=== PATIENT | male | born 1955 | race Caucasian/White ===

== ENCOUNTER 2017-05-07 18:47 | Inpatient (IN) ==
--- NOTE | 2017-05-07 19:01 | EKG Report ---
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
[2017-05-07] MEDS ORDERED: ONDANSETRON 4 MG/2 ML VIAL IV STA (19:13)
[2017-05-07] MEDS ORDERED: NITROGLYCERIN 2% OINT 1 INCH/GM PACK TOP STA (19:13)
[2017-05-07] MEDS ORDERED: METOPROLOL TARTRATE 5 MG/5 ML VIAL IV STA (19:13)
--- NOTE | 2017-05-07 19:18 | Emergency Department Note ---
Arrival - Arrival Chief Complaint: Chest Pain ED Nursing Triage Note: c/o chest pain. pt was transfered from [facility]. Mode of Arrival: Stretcher Limitations: No Limitations Source: Patient Time Seen by Provider: 05/07/17 19:12 - History of Present Illness HPI Narrative: This 62-year-old white male presents on transfer from [place] for complaints of chest pain. The patient has a significant cardiac history with both stents and CABG in the past, followed by Dr. Mike. In fact, the patient was scheduled for a stress test per Dr. Mike for follow-up evaluation. The patient describes onset of severe central chest pain associated with radiation down the right arm without sweats, nausea, vomiting, or significant shortness of breath 2 hours ago. He went to [facility] where initial workup that accompanies him are 2 EKGs which were significant only for some ST changes but no evidence of any severe evolving incident. Currently the patient describes central chest pain at a level 3 out of 10. Notable, the patient has had increased problems with burping and heartburn in recent weeks but has also noted significant fatigue over the last several days for no good reason. At [facility] he was given aspirin, morphine, Zofran, Lovenox, and begun on a nitroglycerin infusion. currently he is medically stable. Onset (ago): hour(s) (Patient presents 2 hours post onset of symptoms) Allergies/Adverse Reactions: Allergies Allergy/AdvReac Type Severity Reaction Status Date / Time No Known Allergies Allergy Unverified 05/07/17 18:55 Review of System - Review of System 12 point system: reviewed and no additional remarkable complaints except as stated - Review of System Constitutional: Present: as per HPI Respiratory: Present: as per HPI Cardiovascular: Present: as per HPI Gastrointestinal: Present: as per HPI Medical,Surgical,& Family Hx - Medical History Cardio: History of: [place] (times 2) Endocrine: History of: Diabetes Mellitus (NIDDM) - Surgical History Cardiac Surgeries: Sugical HX of: Cardiac Catheterization (stents), Cardiac Surgery (cabg) - Social History Smoking Status: Never smoker Frequency of Alcohol Use: None Type of Drug Use: None Exam Physical Examination: GENERAL: Well developed, well nourished white male in no acute distress. HEENT: Normocephalic. No trauma. Moist mucous membranes. EOMI. PERRLA. ENT NML NECK: Supple. No adenopathy. CARDIAC: Regular. No murmurs. Heart rate 60 CHEST: Clear to auscultation. No respiratory distress. O2 sat 96% ABDOMEN: Soft. Minimal midepigastric tenderness. Active bowel sounds. EXTREMITIES: No trauma. Normal ROM. No pedal edema. SKIN: No diaphoresis. No rash. NEURO: Alert. Neuro intact no focal deficits. Vital Signs: Vital Signs Temperature 98.2 F 05/07/17 18:50 Pulse Rate 59 L 05/07/17 19:03 Respiratory Rate 17 05/07/17 19:03 Blood Pressure 133/73 05/07/17 19:03 O2 Sat by Pulse Oximetry 100 05/07/17 19:03 Course - Reevaluation(s) Reevaluation #1: Discussed with patient the wisdom of admission for cooling off and further evaluation of his cardiac status - Consultations Consultation #1: Discussed with Dr. Kaye who agreed an admission for further evaluation. Results - Labs CBC & BMP: 05/07/17 19:00 05/07/17 19:00 Labs: I have reviewed the laboratory and noted the normal cardiac's - Impressions EKG: Sinus rhythm at 56 with normal MA interval and QRS duration. Nonspecific ST changes of flattening anterolateral leads. EKG is unchanged from prior 2 EKGs from [facility]. - Diagnostic Findings Procedure: Chest x-ray: image reviewed by me, report reviewed by me (Median sternotomy noted otherwise normal chest.) Disposition Clinical Impression: Angina, Coronary artery disease, Diabetes Case discussed with: patient, patient's family Disposition: Still a Patient Condition: Guarded Time of Disposition: 19:56
[2017-05-07] MEDS ORDERED: METOPROLOL TARTRATE 5 MG/5 ML VIAL IV ONE (19:22)
[2017-05-07] MEDS ORDERED: NITROGLYCERIN 2% OINT 1 INCH/GM PACK TOP ONE (19:22)
[2017-05-07] MEDS ORDERED: ONDANSETRON 4 MG/2 ML VIAL ONE (19:22)
[2017-05-07 19:25] LABS: Basophils % 0.6 % (0.0-0.8); Eosinophils # 0.2 10*3/uL (0.0-0.87); Eosinophils % 2.4 % (0.00-10.9); Hematocrit 38.5 VOL% (42.0-52.0); Immature Granulocytes % 0.8 %; Immature Granulocytes Absolute 0.05 #; Lymphocytes # 1.5 10*3/uL (1.4-4.0); Mean Corpuscular HGB Conc 33.8 GM/DL (32-36); Mean Corpuscular Hemoglobin 29 PG (27-34); Mean Corpuscular Volume 87.1 FL (87-102); Mean Platelet Volume 9.6 FL (9.6-12.0); Monocytes # 0.7 10*3/uL (0.11-0.8); Monocytes % 11.1 % (1.7-12.7); Neutrophils # 4.2 10*3/uL (1.4-7.4); Neutrophils % 63.1 % (38.7-73.9); Platelet Count 294 T/CUMM (130-400); Red Blood Count 4.42 MC/CUMM (3.8-5.5); Red Cell Distribution Width 13.1 % (9.3-17.3); White Blood Count 6.6 T/CUMM (4-12)
[2017-05-07 19:35] LABS: Alanine Aminotransferase 42 U/L (16-61); Alkaline Phosphatase 74 U/L (45-117); Aspartate Amino Transferase 22 U/L (0-37); Bilirubin,Total < 0.39 MG/DL (0.2-1.0); Blood Urea Nitrogen 18 MG/DL (7-18); Calcium 9.4 MG/DL (8.5-10.1); Glucose 115 MG/DL (74-106); Osmolality,Calculated 281.4 MOS/KG (273-304); Potassium 3.8 MMOL/L (3.5-5.1); Sodium 140 MMOL/L (136-145); Total Protein 6.7 G/DL (6.4-8.3)
[2017-05-07 19:42] LABS: D-Dimer <= 0.5 MG/L FEU; PT Patient Result 10.6 SECS
[2017-05-07] MEDS ORDERED: DEXTROSE 50% 25 GM/50 ML SYRINGE IV PRN (19:58)
[2017-05-07] MEDS ORDERED: HYDROmorphone 2 MG/1 ML VIAL IV PRN (19:58)
[2017-05-07] MEDS ORDERED: ONDANSETRON 4 MG/2 ML VIAL IV PRN (19:58)
[2017-05-07] MEDS ORDERED: GLUCAGON 1 MG VIAL IM PRN (19:58)
[2017-05-07] MEDS ORDERED: NITROGLYCERIN DRIP 50 MG/250 ML BOTTLE IV SCH ×2 (20:00)
--- NOTE | 2017-05-07 20:36 | XRay Report ---
XR chest 2V Indication: Chest pain. Comparison: Chest x-ray May 07, 2017 Technique: PA and lateral chest x-ray was performed. Findings: Heart size appears within normal limits. Postoperative changes from prior sternotomy are stable. Right-sided coronary artery stent is again demonstrated. The lungs are clear. Pulmonary vasculature appears within normal limits. Bones and soft tissues demonstrate no significant abnormalities. Impression: 1. No active cardiopulmonary disease. 05/07/2017 8:13 PM PROCEDURE INTERPRETED AT [facility] DEPARTMENT OF RADIOLOGY Final Report Signed by: Dr. Gio Gauthier
[2017-05-07] MEDS: METOPROLOL TARTRATE 50 MG TABLET PO SCH (21:35)
[2017-05-07] MEDS: ATORVASTATIN 20 MG TABLET PO SCH (21:35)
[2017-05-07] MEDS: INSULIN REGULAR 100 UNIT/ML SUBCUT SCH (21:36)
[2017-05-08] MEDS: HYDROmorphone 2 MG/1 ML VIAL IV PRN ×2 (01:20→21:43)
--- NOTE | 2017-05-08 02:00 | EKG Report ---
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
--- NOTE | 2017-05-08 06:41 | EKG Report ---
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
--- NOTE | 2017-05-08 06:47 | EKG Report ---
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
[2017-05-08 06:48] LABS: Blood Urea Nitrogen 17 MG/DL (7-18); Glucose 111 MG/DL (74-106); Osmolality,Calculated 283.3 MOS/KG (273-304); Potassium 3.9 MMOL/L (3.5-5.1); Sodium 141 MMOL/L (136-145); Troponin I Only 0.108 NG/ML (0.00-0.045)
[2017-05-08] MEDS ORDERED: metFORMIN 500 MG TABLET PO SCH (08:00)
--- NOTE | 2017-05-08 08:21 | Cardiology History & Physical ---
<Odilia Garcia E - Last Filed: 05/08/17 08:05> Assessment and Plan - Time spent with patient Time spent with patient: Greater than 30 minutes (1) Chest pain Status: Acute Assessment and plan: SEE PLAN OF CARE LISTED BELOW Current Visit: Yes (2) CAD (coronary artery disease) Status: Chronic Assessment and plan: SEE PLAN OF CARE LISTED BELOW Current Visit: Yes (3) Hx of CABG Status: Chronic Assessment and plan: SEE PLAN OF CARE LISTED BELOW Current Visit: Yes (4) Hypertension Status: Chronic Assessment and plan: SEE PLAN OF CARE LISTED BELOW Current Visit: Yes (5) Dyslipidemia Status: Chronic Assessment and plan: SEE PLAN OF CARE LISTED BELOW Current Visit: Yes (6) Right carotid bruit Status: Chronic Assessment and plan: SEE PLAN OF CARE LISTED BELOW Current Visit: Yes (7) Elevated troponin Status: Acute Assessment and plan: SEE PLAN OF CARE LISTED BELOW Current Visit: Yes History of Present Illness Chief complaint: CHEST PAIN 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 Mr. Reynolds, 62WM, History of known CAD S/P CABG June 02, 1999 with sequential SVG to intermediate branch and diagonal, REEDER to LAD, SVG to RCA. S/P inferior infarction October 08, 2011 with proximal RCA vein graft stenting. S/P mid circumflex stent November 22, 2011. History of hypertension, dyslipidemia, diabetes, and obesity. Patient was most recently seen in cardiology clinic April 30, 2017 and scheduled for stress testing tomorrow and carotid ultrasound for right carotid bruit. Last evening, around 1700, patient had been working with his horses when he began to experience a substernal chest pressure radiating mid chest outward bilaterally. "[place] like 100 pounds sitting on my chest". Was associated with mild shortness of breath, diaphoresis. He took one nitroglycerin and the chest discomfort did not improve. He found his , took a second nitroglycerin and went directly to the [facility] ED. He was treated for acute coronary syndrome and transferred to our facility. He continued to have chest discomfort on arrival and IV nitroglycerin was initiated, currently chest pain- free. Rates the discomfort as a 7 on a scale of 1-10. States that this discomfort is "the exact same" as when he required his last stent. Troponin has slightly increased from 0.055 to 0.108. EKG reveals nonspecific ST-T wave abnormality. He has been given Aspirin, Lovenox, Metoprolol, Nitroglycerin, Effient was continued. Will hold his Lisinopril this morning anticipating possible heart catheterization. Will verify he is getting a lipid-lowering agent this morning. Will keep patient NPO and further discuss with Dr. Kaye, await additional recommendations. Carotid US for right carotid bruit. Echo. (HEART CATH REPORT FROM 10/22/2011 HAS BEEN SCANNED IN UNDER "EXTERNAL RECORDS"). ASSESSMENT/PLAN: 1. CHEST PAIN - suspicious for angina. Has been treated for ACS. Currently chest pain-free on IV nitroglycerin 2. KNOWN CAD -see listed above. Of note, recently scanned in 3. HYPERTENSION - adequately controlled on beta norman, MARIUSZ inhibitor. Holding MARIUSZ inhibitor for possible heart cath this morning. 4. DYSLIPIDEMIA - LDL December. Fasting lipid profile in the morning. Continue lipid-lowering agent. 6. ELEVATED TROPONIN - continue cycle cardiac biomarkers 7. CAROTID BRUIT, RIGHT - carotid ultrasound Allergies Allergy/AdvReac Type Severity Reaction Status Date / Time No Known Allergies Allergy Unverified 05/07/17 18:55 Review of systems: REVIEW OF SYSTEMS: - Constitutional Constitutional: Present: Fatigue. Absent: syncope, anorexia, night sweats - EENT Eyes: Absent: blurry vision, loss of vision, diplopia Ears: Absent: decreased hearing, ear pain, ear discharge - Cardiovascular Cardiovascular: Present: chest pain with exertion, and at rest. Mild dyspnea with chest pain. Usually no dyspnea on exertion, edema or palpitations. Absent : chest pain with deep breath, claudication, - Respiratory Respiratory: Denies: BORGES, cough. Absent: wheezing, hemoptysis, change in phlegm color - Gastrointestinal Gastrointestinal: Present: constipation. Absent: abdominal pain, hematemesis , hematochezia, melena, change in bowel habits, nausea - Genitourinary Genitourinary: Absent: difficulty urinating, dysuria, urinary hesitancy, flank pain - Musculoskeletal Musculoskeletal: Present: back pain Absent: joint swelling, muscle cramps, muscle weakness - Neurological Neurological: Present: normal gait without frequent falls. Absent: dizziness, hemiparesis - Psychiatric Psychiatric: Absent: anxiety, depression, difficulty concentrating - Endocrine Endocrine: Present: fatigue. Absent: cold intolerance, heat intolerance, polyuria, polyphagia, polydipsia - Hematologic/Lymphatic Hematologic/Lymphatic: Present: easy bruising. Absent: easy bleeding -Integumentary Integumentary: Absent: lesions, rashes, skin breakdown Medical,Surgical,& Family Hx - Medical History Cardio: History of: CAD, Hypertension, [place] (times 2) No history of: Cardiac Dysrhythmia, CHF Endocrine: History of: Diabetes Mellitus (NIDDM) Genitourinary: History of: Kidney Stones Gastrointestinal: History of: GERD Musculoskeletal: History of: Back/Neck Problems - Surgical History Cardiac Surgeries: Sugical HX of: Cardiac Catheterization (stents), Cardiac Surgery (cabg x4) - Family History Family History: Reports;: Family Diabetes (mother) - Social History Smoking Status: Never smoker Have you smoked in the last 12 months: No Frequency of Alcohol Use: None Type of Drug Use: None Marital Status: Lives With:: Spouse Functional capacity: independent ambulation Cardiology Physical Exam - Constitutional Vitals: Vital Signs Temp Pulse Resp BP Pulse Ox 97.1 F L 53 L 20 96/57 95 05/08/17 04:00 05/08/17 07:00 05/08/17 07:00 05/08/17 07:00 05/08/17 07:00 Intake and Output 05/07/17 05/08/17 05/08/17 23:59 07:59 15:59 Intake Total 120 / 120 Output Total Balance - 119 / 119 Intake: Oral 120 / 120 Output: Urine Other: Voiding Method Urinal Urinal Weight 89.131 kg 89.131 kg Patient Weight 05/08/17 23:59 Weight 89.131 kg Exam: General: [Appears well with no apparent distress.] [Pleasant and cooperative. ] [Appears comfortable.] HEENT: [PERRL, normocephalic, atraumatic. Mucous membranes moist. No jaundice noted. Conjunctiva moist and clear, sclerae anicteric] Neck: No JVD/HJR, no thyromegaly or lymphadenopathy noted. Right carotid bruit noted. Cardiac: [Regular rate and rhythm.] [No murmur rub or gallop.] Lungs: [Clear to auscultation without accessory muscle use to assist the respiratory pattern.] Oxygen in use via nasal cannula Abdomen: Soft, bowel sounds normoactive. Nontender and nondistended. No abdominal bruit or thrill noted. No masses noted. Musculoskeletal: No fluid collection. Decreased range of motion is noted. Extremities: No clubbing, cyanosis noted. [ No edema noted.] Upper extremity pulses 2+. Lower extremity pulses 2+. Capillary refill less than 3 seconds. Skin: No unusual lesions or rashes. No skin breakdown appreciated. Neuro: Awake, alert and oriented 3. Moves all extremities well without hemiparesis or paralysis. No essential tremor is appreciated. Result/EKG - Labs CBC & BMP: 05/07/17 19:00 05/08/17 05:16 Lab Results: I have reviewed the past 24 hour labs Labs: Laboratory Results - last 24 hr 05/07/17 05/07/17 05/07/17 19:00 19:00 19:00 WBC RBC Hgb Hct MCV MCH MCHC RDW Plt Count MPV Neut % (Auto) Lymph % (Auto) [place] % (Auto) Eos % (Auto) Baso % (Auto) Neut # (Auto) Lymph # (Auto) [place] # (Auto) Eos # (Auto) Baso # (Auto) Immature Gran % Nucleated RBC % Immature Gran # Nucleated RBCs # Immature Plt Fraction INR 1.0 PT Patient/Control Mix 10.6 D-Dimer, Quantitative <= 0.5 Circ Anticoag PTT 30.0 Sodium 140 Potassium 3.8 Chloride 106 Carbon Dioxide 25 Anion Gap 12.8 BUN 18 Creatinine 1.10 GFR Calculation 89 BUN/Creatinine Ratio 16.00 Glucose 115 H POC Glucose Calculated Osmolality 281.4 Calcium 9.4 Total Bilirubin < 0.39 AST 22 ALT 42 Alkaline Phosphatase 74 Total Creatine Kinase CK-MB (CK-2) Troponin I B-Natriuretic Peptide 31 Total Protein 6.7 Albumin 4.0 Globulin 2.7 Albumin/Globulin Ratio 1.4 05/07/17 05/07/17 05/07/17 19:00 19:00 21:33 WBC 6.6 RBC 4.42 Hgb 13.0 L Hct 38.5 L MCV 87.1 MCH 29 MCHC 33.8 RDW 13.1 Plt Count 294 MPV 9.6 Neut % (Auto) 63.1 Lymph % (Auto) 22.0 [place] % (Auto) 11.1 Eos % (Auto) 2.4 Baso % (Auto) 0.6 Neut # (Auto) 4.2 Lymph # (Auto) 1.5 [place] # (Auto) 0.7 Eos # (Auto) 0.2 Baso # (Auto) 0.0 Immature Gran % 0.8 Nucleated RBC % 0.0 Immature Gran # 0.05 Nucleated RBCs # 0.00 Immature Plt Fraction 0.0 INR PT Patient/Control Mix D-Dimer, Quantitative Circ Anticoag PTT Sodium Potassium Chloride Carbon Dioxide Anion Gap BUN Creatinine GFR Calculation BUN/Creatinine Ratio Glucose POC Glucose 116 H Calculated Osmolality Calcium Total Bilirubin AST ALT Alkaline Phosphatase Total Creatine Kinase CK-MB (CK-2) Troponin I < 0.015 B-Natriuretic Peptide Total Protein Albumin Globulin Albumin/Globulin Ratio 05/07/17 05/08/17 05/08/17 22:30 01:06 05:16 WBC RBC Hgb Hct MCV MCH MCHC RDW Plt Count MPV Neut % (Auto) Lymph % (Auto) [place] % (Auto) Eos % (Auto) Baso % (Auto) Neut # (Auto) Lymph # (Auto) [place] # (Auto) Eos # (Auto) Baso # (Auto) Immature Gran % Nucleated RBC % Immature Gran # Nucleated RBCs # Immature Plt Fraction INR PT Patient/Control Mix D-Dimer, Quantitative Circ Anticoag PTT Sodium 141 Potassium 3.9 Chloride 108 H Carbon Dioxide 27 Anion Gap 9.9 BUN 17 Creatinine 1.07 GFR Calculation 90 BUN/Creatinine Ratio 15.00 Glucose 111 H POC Glucose Calculated Osmolality 283.3 Calcium 9.0 Total Bilirubin AST ALT Alkaline Phosphatase Total Creatine Kinase 75 CK-MB (CK-2) 1.5 Troponin I 0.056 H D 0.066 H 0.108 H D B-Natriuretic Peptide Total Protein Albumin Globulin Albumin/Globulin Ratio 05/08/17 07:42 WBC RBC Hgb Hct MCV MCH MCHC RDW Plt Count MPV Neut % (Auto) Lymph % (Auto) [place] % (Auto) Eos % (Auto) Baso % (Auto) Neut # (Auto) Lymph # (Auto) [place] # (Auto) Eos # (Auto) Baso # (Auto) Immature Gran % Nucleated RBC % Immature Gran # Nucleated RBCs # Immature Plt Fraction INR PT Patient/Control Mix D-Dimer, Quantitative Circ Anticoag PTT Sodium Potassium Chloride Carbon Dioxide Anion Gap BUN Creatinine GFR Calculation BUN/Creatinine Ratio Glucose POC Glucose 114 H Calculated Osmolality Calcium Total Bilirubin AST ALT Alkaline Phosphatase Total Creatine Kinase CK-MB (CK-2) Troponin I B-Natriuretic Peptide Total Protein Albumin Globulin Albumin/Globulin Ratio - Diagnostic Findings Procedure: Chest x-ray: report reviewed by me - EKG EKG results: interpreted by me EKG shows: sinus rhythm <Marques Kaye - Last Filed: 05/08/17 13:35> History of Present Illness History of present illness: Mr. Reynolds is a 62 year old male who I have personally interviewed and examined. I discussed his case with Odilia Garcia NP and agree with her assessment. This patient has had known coronary having coronary bypass surgery as noted. The patient has had a microinfarction is a previous stenting. The patient now presents with progressive chest pain is for cardiac catheterization intervention. I discussed this procedure with the patient detail and reviewed this with him. I reviewed the risk as well. I discussed cardiac catheterization and percutaneous coronary intervention with the patient and available family. I reviewed with them the indications for the procedure and the basis of how the procedure would be carried out. I also reviewed with them the risk of the procedure which include but not necessarily limited to access site bleeding, bruising, pain, swelling or vascular injury that may require emergency vascular surgery, blood transfusion, or thrombin injection. Also discussed the possibility of stroke, myocardial infarction, arrhythmia which may require electrocardioversion, and the possibility of dye reaction that would require medical therapy. Also discussed the possibility of coronary artery injury, ruptured, closure or perforation that may require emergency bypass surgery. We also discussed the possibility of from a major complication. Questions answered. They voice understanding and agree to proceed. Cardiology Physical Exam - Constitutional Vitals: Vital Signs Temp Pulse Resp BP Pulse Ox 98.4 F 57 L 23 124/71 95 05/08/17 12:00 05/08/17 13:00 05/08/17 13:00 05/08/17 13:00 05/08/17 13:00 Intake and Output 05/07/17 05/08/17 05/08/17 23:59 07:59 15:59 Intake Total 120 / 120 Output Total Balance - 119 / 119 Intake: Oral 120 / 120 Output: Urine Other: Voiding Method Urinal Urinal Weight 89.131 kg 89.131 kg Patient Weight 05/08/17 23:59 Weight 89.131 kg Result/EKG - Labs CBC & BMP: 05/07/17 19:00 05/08/17 05:16 Labs: Laboratory Results - last 24 hr 05/07/17 05/07/17 05/07/17 19:00 19:00 19:00 WBC RBC Hgb Hct MCV MCH MCHC RDW Plt Count MPV Neut % (Auto) Lymph % (Auto) [place] % (Auto) Eos % (Auto) Baso % (Auto) Neut # (Auto) Lymph # (Auto) [place] # (Auto) Eos # (Auto) Baso # (Auto) Immature Gran % Nucleated RBC % Immature Gran # Nucleated RBCs # Immature Plt Fraction INR 1.0 PT Patient/Control Mix 10.6 D-Dimer, Quantitative <= 0.5 Circ Anticoag PTT 30.0 Sodium 140 Potassium 3.8 Chloride 106 Carbon Dioxide 25 Anion Gap 12.8 BUN 18 Creatinine 1.10 GFR Calculation 89 BUN/Creatinine Ratio 16.00 Glucose 115 H POC Glucose Calculated Osmolality 281.4 Calcium 9.4 Total Bilirubin < 0.39 AST 22 ALT 42 Alkaline Phosphatase 74 Total Creatine Kinase CK-MB (CK-2) Troponin I B-Natriuretic Peptide 31 Total Protein 6.7 Albumin 4.0 Globulin 2.7 Albumin/Globulin Ratio 1.4 05/07/17 05/07/17 05/07/17 19:00 19:00 21:33 WBC 6.6 RBC 4.42 Hgb 13.0 L Hct 38.5 L MCV 87.1 MCH 29 MCHC 33.8 RDW 13.1 Plt Count 294 MPV 9.6 Neut % (Auto) 63.1 Lymph % (Auto) 22.0 [place] % (Auto) 11.1 Eos % (Auto) 2.4 Baso % (Auto) 0.6 Neut # (Auto) 4.2 Lymph # (Auto) 1.5 [place] # (Auto) 0.7 Eos # (Auto) 0.2 Baso # (Auto) 0.0 Immature Gran % 0.8 Nucleated RBC % 0.0 Immature Gran # 0.05 Nucleated RBCs # 0.00 Immature Plt Fraction 0.0 INR PT Patient/Control Mix D-Dimer, Quantitative Circ Anticoag PTT Sodium Potassium Chloride Carbon Dioxide Anion Gap BUN Creatinine GFR Calculation BUN/Creatinine Ratio Glucose POC Glucose 116 H Calculated Osmolality Calcium Total Bilirubin AST ALT Alkaline Phosphatase Total Creatine Kinase CK-MB (CK-2) Troponin I < 0.015 B-Natriuretic Peptide Total Protein Albumin Globulin Albumin/Globulin Ratio 05/07/17 05/08/17 05/08/17 22:30 01:06 05:16 WBC RBC Hgb Hct MCV MCH MCHC RDW Plt Count MPV Neut % (Auto) Lymph % (Auto) [place] % (Auto) Eos % (Auto) Baso % (Auto) Neut # (Auto) Lymph # (Auto) [place] # (Auto) Eos # (Auto) Baso # (Auto) Immature Gran % Nucleated RBC % Immature Gran # Nucleated RBCs # Immature Plt Fraction INR PT Patient/Control Mix D-Dimer, Quantitative Circ Anticoag PTT Sodium 141 Potassium 3.9 Chloride 108 H Carbon Dioxide 27 Anion Gap 9.9 BUN 17 Creatinine 1.07 GFR Calculation 90 BUN/Creatinine Ratio 15.00 Glucose 111 H POC Glucose Calculated Osmolality 283.3 Calcium 9.0 Total Bilirubin AST ALT Alkaline Phosphatase Total Creatine Kinase 75 CK-MB (CK-2) 1.5 Troponin I 0.056 H D 0.066 H 0.108 H D B-Natriuretic Peptide Total Protein Albumin Globulin Albumin/Globulin Ratio 05/08/17 05/08/17 07:42 11:55 WBC RBC Hgb Hct MCV MCH MCHC RDW Plt Count MPV Neut % (Auto) Lymph % (Auto) [place] % (Auto) Eos % (Auto) Baso % (Auto) Neut # (Auto) Lymph # (Auto) [place] # (Auto) Eos # (Auto) Baso # (Auto) Immature Gran % Nucleated RBC % Immature Gran # Nucleated RBCs # Immature Plt Fraction INR PT Patient/Control Mix D-Dimer, Quantitative Circ Anticoag PTT Sodium Potassium Chloride Carbon Dioxide Anion Gap BUN Creatinine GFR Calculation BUN/Creatinine Ratio Glucose POC Glucose 114 H 104 Calculated Osmolality Calcium Total Bilirubin AST ALT Alkaline Phosphatase Total Creatine Kinase CK-MB (CK-2) Troponin I B-Natriuretic Peptide Total Protein Albumin Globulin Albumin/Globulin Ratio
[2017-05-08] MEDS ORDERED: POTASSIUM CHLORIDE RIDER 10 MEQ in PREMIX 1 EACH IV PRN (08:30)
[2017-05-08] MEDS ORDERED: DIAZEPAM 5 MG TABLET PO ONE (08:30)
[2017-05-08] MEDS ORDERED: MAGNESIUM SULF RIDER 2 GM in PREMIX 1 EACH IV PRN (08:30)
[2017-05-08] MEDS ORDERED: diphenhydrAMINE CAP 25 MG CAPSULE PO ONE (08:30)
[2017-05-08] MEDS: INSULIN REGULAR 100 UNIT/ML SUBCUT SCH ×4 (08:50→21:39)
[2017-05-08] MEDS ORDERED: ENOXAPARIN 100 MG/ML SYRINGE SUBCUT SCH (09:00)
[2017-05-08] MEDS ORDERED: ATORVASTATIN 40 MG TABLET PO ONE (09:00)
[2017-05-08] MEDS ORDERED: LISINOPRIL 10 MG TABLET PO SCH (09:00)
[2017-05-08] MEDS: PRASUGREL 10 MG TABLET PO SCH (09:12)
[2017-05-08] MEDS: PANTOPRAZOLE 40 MG TABLET PO SCH (09:12)
[2017-05-08] MEDS: METOPROLOL TARTRATE 50 MG TABLET PO SCH ×2 (09:12→21:39)
[2017-05-08] MEDS: ASPIRIN 325 MG TABLET PO SCH (09:12)
[2017-05-08] MEDS: SODIUM CHLORIDE 0.45% 1,000 ML IV SCH ×2 (09:18→23:03)
--- NOTE | 2017-05-08 10:47 | Ultrasound Report ---
Carotid artery ultrasound Indication: Carotid bruit Comparison: None available Color Doppler flow and spectral analysis was performed. Findings: Small amount of atherosclerotic plaque is present in both proximal internal carotid arteries. Right peak systolic velocity: Right CCA: 119 cm/s Right proximal Internal Carotid Artery is 89.0 cm/s. Ratio of flow is 1.3 Right distal Internal Carotid is 149.4 cm/s . Left peak systolic velocity: Left CCA: 114 cm/s Left proximal Internal carotid Artery is 93.4 cm/s . Ratio of flow is 0.9 Left distal Internal carotid Artery is 99.8cm/s Bilateral antegrade vertebral flow is seen. Impression: No evidence of hemodynamically significant stenosis is seen, 0-49% estimated stenosis. Consensus conference on the carotid ultrasound criteria used. Ultrasound images were captured and stored. PROCEDURE INTERPRETED AT [facility] DEPARTMENT OF RADIOLOGY Final Report Signed by: Dr. Galindo Roper
[2017-05-08] MEDS ORDERED: fentaNYL 100 MCG/2 ML VIAL ONE (13:39)
[2017-05-08] MEDS ORDERED: MIDAZOLAM 2 MG/2 ML VIAL ONE (13:39)
[2017-05-08] MEDS ORDERED: LIDOCAINE 1% 20 ML VIAL ONE (13:39)
--- NOTE | 2017-05-08 13:40 | History and Physical Update ---
Sedation H&P Update - History and Physical H&P was reviewed, the patient examined and there: are no changes in the patients condition since last H&P was completed. - Dictation Physical: refer to H&P completed by admitting physician - Physical Exam Mental Status: alert and oriented Heart: regular rate and rhythm Lung: clear to auscultation Abdomen: within normal limits Vitals: within normal limits History and Physical Changes: None - Sedation Plan for Sedation: moderate Patient Consent: Procedure disscussed with patient and patinet has consented., Risks and benefits were discussed with patient,including infection,, bleeding, injury to surrounding structures, seizure, temporary nerve, Patient understands and accepts potential risks/benefits and agrees to, proceed. ASA Class: III Airway Assessment: Class III: Soft palate, base of uvula visible
[2017-05-08] MEDS ORDERED: HYDROmorphone 2 MG/1 ML VIAL ONE (14:28)
--- NOTE | 2017-05-08 14:39 | Operative Note ---
Date of procedure: 05/08/17 Procedure Preformed: Left heart catheterization with LV gram, SVG angiograms 2, REEDER angiogram with runoff. Stent placement in the SVG to the RCA. Surgeon / Physician: Marques Kaye Library Clerk Talking Books: Latoya Vargas Post-op diagnosis: same Findings: Multivessel coronary disease with patent REEDER to LAD, SVG to OM ramus is closed and is chronic, SVG to RCA with 90% stenosis with CANDIE II flow with post intervention of less than 30% and with CANDIE-3 flow. Specimens: none sent Estimated blood loss: minimal Condition: stable Anesthesia: local, conscious sedation Disposition: ICU
[2017-05-08] MEDS ORDERED: GLUCAGON 1 MG VIAL IM PRN (15:09)
[2017-05-08] MEDS ORDERED: DEXTROSE 50% 25 GM/50 ML VIAL IV PRN (15:09)
--- NOTE | 2017-05-08 16:15 | Event Note ---
The patient is doing well post cardiac catheterization. Right groin is stable. Is having no chest pain at this time. If everything goes well we will plan on discharging tomorrow. I discussed our plans with the patient.
[2017-05-08 17:59] LABS: Apearance,Urine CLEAR (Clear); Bilirubin,Urine Negative (Negative); Blood, Urine Negative (Negative); Glucose,Urine (UA) Negative (Negative); Ketones,Urine 5 mg/dL (Negative); Mucus,Urine Occasional /LPF (Occasional); Nitrite,Urine Negative (Negative); Protein,Urine Negative; RBC,Urine 1 /HPF (0-4); Urine Color Straw (Yellow); Urine Specific Gravity > 1.060 (1.001-1.035); Urine Urobilinogen < 2.0 EU/DL (0.2-1.0); WBC,Urine <1 /HPF (0-6)
--- NOTE | 2017-05-08 19:37 | Cardiac Catheterization ---
Date of Procedure:: 05/08/17 Pre-op Diagnosis: Unstable angina. Known coronary disease. Post-op diagnosis: same Procedure: LEFT HEART CATHERIZATION History: 62-year-old man who has had recurrent coronary disease and bypass surgery previously and stent procedures including the right coronary artery graft and circumflex artery. Patient recurrent interventions. Pre-Op diagnosis: Patient with unstable angina on presentation. Postoperative diagnosis: Patient with high-grade stenosis of the SVG to RCA. Procedures: 1. Left heart catheterization. 2. Left ventricular angiogram. 3. Selective left and right coronary angiograms. 4. Percutaneous coronary intervention with stent in proximal SVG to RCA. 5. Right common femoral artery Angio-Seal hemostasis. 6. Left internal mammary artery angiogram. 7. Selective SVG angiograms with runoff 2. Equipment: 6 Croatian arterial sheath, 6 Croatian diagnostic pigtail catheter, JL4 and JR4 diagnostic catheters. A 6 Croatian Angio-Seal hemostatic device. For percutaneous coronary intervention of SVG to RCA: Multipurpose 1 catheter, Portero-Achieve X flex PTCA guidewire, A trek 3.0 x 15 mm PTCA balloon, 4.0 x 28 mm Synergy DORY, NC trek 4.0 x 15 mm balloon. Medications: Preoperative Benadryl and Valium given by mouth. Lidocaine 1% local anesthesia 10 mls administered by myself. Intraprocedure patient received Versed 2 milligrams IVP, fentanyl 100 micrograms IVP, Dilaudid 1 milligrams IVP. For PCI: No additional anticoagulants or antiplatelet therapy given. Patient received full dose Lovenox earlier today. Complications: None immediate. Contrast: Omnipaque 187 milliliters. Description of procedure: After informed consent the patient was given preoperative medications and brought to the catheterization laboratory where their right groin was prepped and draped in usual fashion. IV sedation was then obtained after which local anesthesia was administered at the right groin over the right common femoral artery. Using modified Seldinger technique the right common femoral artery was cannulated with 6 Croatian arterial sheath placed. The pigtail catheter was then advanced through the sheath in a retrograde approach through the aorta to the aortic valve. The catheter was advanced through the aortic valve where left ventricular pressures were measured. The catheter was then pulled back into the aortic root and pressures measured. The catheter was then advanced across the aortic valve into the left ventricle where left ventricular angiogram was obtained in the right anterior oblique view. The pigtail catheter was then removed. The JL4 diagnostic coronary catheter was then advanced through the sheath in a retrograde approach and used to cannulate the left coronary artery of which angiograms were obtained in multiple projections. This catheter was then removed. The JR 4 diagnostic coronary catheter was then advanced retrograde through the aorta and used to cannulate the right coronary artery of which angiograms were obtained in multiple projections. This right coronary catheter was used to obtain selective left internal mammary artery angiogram. The right coronary catheter was also used to obtain SVG angiograms to the RCA and to the diagonal branch. The SVG to diagonal branch is known to be occluded chronically. Angiograms were then reviewed. The right coronary catheter was then removed. At this point it was deemed that he had high-grade stenosis involving the SVG to RCA. Intervention was then carried out using a multipurpose A1 interventional catheter through which a Swarm[employer] PTCA guidewire was advanced to the distal RCA. Over this a trek 3.0 x 15 mm balloon was advanced across the tight stenosis in the proximal RCA with 2 inflations carried out at 14 cristina ranging from 14-30 seconds. At this point we exchanged over the guidewire for the 4.0 x 28 mm Synergy DORY stent and this was deployed from the ostium of the RCA crossing the high-grade stenosis that was in-stent stenosis. Stent was deployed at 14 cristina for 30 seconds. We had some waste and not full expansion in the mid stent where O stents of course were. At this point a 4.0 x 15 mm NC trek balloon was then advanced and a 23 cristina inflation was carried out for 34 seconds across the mid area that was not fully expanded secondary to constriction from oh stents and disease. We have some improvement. The balloon was then pulled back into the ostium of the artery see a graft in a 20 cristina inflation was carried out for 28 seconds. At this point final angiograms were obtained with and without the guidewire down and we had excellent results. We still have some waste inside the mid stent area but this was secondary not to state issues with the exception of all stents and disease. Interventional equipment was removed and Angio-Seal hemostasis was obtained of the right common femoral artery. Right comfort R had been visualized earlier on LV gram runoff. Hemodynamic data: LV 130/-16, EDP 11; AO root 118/47, mean 79. Left ventricular angiogram: Left ventricle is upper is normal size. There is an area of hypo-to akinesis in the anterior lateral tight wall from the right oblique view. There is also some inferior basilar hypokinesis. Overall ejection fraction is probably 40% to 45%. There is no significant mitral valve regurgitation demonstrated. There are valve. Tricuspid structure. The thoracic aorta and abdominal aorta was overall unremarkable. Bilaterally the iliac vessels appear to be unremarkable. Right comfort was patent with the sheath inserted in this vessel. Left main coronary artery angiogram: This vessel appears to be grossly intact with some calcification. It appears to probably trifurcated into the LAD, ramus intermedius and circumflex arteries. It is patent without stenosis. Left anterior descending artery angiogram: The LAD is totally occluded in its proximal/ostial portion. The LAD in its mid to distal portion seen by way of REEDER angiogram with runoff. The anastomosis site is intact in the LAD beyond the anastomosis is intact with good runoff. Circumflex artery angiogram: Circumflex arteries a medium caliber vessel giving rise essentially to a single relatively large obtuse marginal branch that has multiple branches. There appears to be a patent stent in this obtuse marginal branch. In the proximal right side is 50% less stenosis with CANDIE-3 flow. There is diffuse luminal irregularities noted. Ramus intermedius angiogram: There is a small caliber vessel but is patent. Right coronary artery angiogram: RCA is totally occluded proximally. The distal vessel seen by way assess vein graft. He is medium caliber and dominant. PDA and posterior branches are patent as is the small AV node artery. REEDER to LAD graft because a pedicle graft and is widely patent with the anastomosis site intact. SVG to ramus intermedius/diagonal angiogram: This is totally occluded at its ostium and this is an old finding. SVG to distal RCA: This graft is patent with multiple stents in the proximal portion of the vessel. There is 99% stenosis with CANDIE II flow. At the ostium of the graft there is 60% stenosis. PCI of SVG to RCA: This is as described above. The 99% lesion with CANDIE II flow was dilated to 0% residual stenosis and CANDIE-3 flow. Just proximal to this though there is some narrowing still even after high pressure balloon inflations secondary to disease and prior stents. There is CANDIE-3 flow runoff. The ostial 60% stenosis was dilated to 0% residual. Right common femoral artery angiogram: This vessel was seen by way of LV gram runoff and is widely patent successfully initial hemostasis. Impression: 1. Left ventricle; partial mild to consider ischemic heart disease. Ejection fraction 40-45%. 2. LVEDP is normal at 60 mmHg. 3. No significant gradient across the aortic valve looking at tracings. 4. No significant mitral valve regurgitation. 5. RCA is totally occluded proximally with a distal vessel being patent is seen by way of SVG. 6. SVG to RCA has a 99% proximal stenosis and also stenosis 60%. There is CANDIE II flow present. 7. Successful stent placement as noted above with a 9% lesion dilated 0% residual stenosis and 6% to 0% residual stenosis and CANDIE-3 flow. There is some residual luminal stenosis secondary to chronic disease and old stents. 8. Left main coronary is patent with some calcification. 9. LAD is totally occluded proximally/ostial with the mid and distal vessel seen by way of REEDER graft and is patent with good runoff. 10. REEDER to the LAD is widely patent. 11. Circumflex artery has proximal 50% less stenosis with the obtuse marginal stent widely patent. 12. SVG to ramus intermedius and diagonal branch is totally occluded and is an old finding. 13. The right comfort is widely patent successful Angio-Seal hemostasis. Discussion: We will marked the patient post intervention will continue his risk factor modification and medical therapy. Implants: See above. Surgeon / Physician: Marques Kaye Estimated blood loss: minimal Specimens: none sent Condition: stable Disposition: ICU/CCU - Medications / Follow-up
--- NOTE | 2017-05-08 20:39 | ECHO Report ---
[facility] Exam Date: 05/08/2017 08:53 Referring Physician: Technologist: Christina Murcia RDCS Age: 62 Ht (in): 70 Wt (lb): 196 Gender: M Exam Location: [facility] Echo Indications: Chest pain, unspecified, Essential (primary) hypertension, CAD, Hx: CABG, Dyslipidemia, Elevated troponin, Rt. carotid bruit BP: 96 / 57 HR: 62 Rhythm: Sinus Technical Quality: IMPRESSIONS 1. Left ventricle is normal size with segmental wall motion normality's as described below consistent ischemic heart disease. There is mild concentric left ventricular hypertrophy. Ejection fraction is approximately 50%. 2. Left atrium is mildly dilated. 3. Right ventricle was mildly dilated with mild to moderate dilation of the right atrium. 4. Aortic valve tricuspid mildly sclerotic but no stenosis or insufficiency. 5. Mild mitral valve regurgitation. 6. Mild tricuspid regurgitation. 7. It worse mild elevated right-sided pressures. MEASUREMENTS (Male / Female) Normal Values 2D ECHO LV Diastolic Diameter PLAX 5.5 cm 4.2 - 5.9 / 3.9 - 5.3 cm LV Systolic Diameter PLAX 4.1 cm LV Fractional Shortening PLAX 25.1 % IVS Diastolic Thickness 1.1 cm 0.6 - 1.0 / 0.6 - 0.9 cm LVPW Diastolic Thickness 1.1 cm 0.6 - 1.0 / 0.6 - 0.9 cm RV Internal Dim ED PLAX 3.1 cm Aortic Root Diameter 3.0 cm LA Systolic Diameter LX 4.5 cm 3.0 - 4.0 / 2.7 - 3.8 cm DOPPLER TR Peak Velocity 297.0 cm/s TR Peak Gradient 35.3 mmHg FINDINGS Left Ventricle Normal left ventricular cavity size. There is no segmental wall motion abnormalities involving the inferior basal wall as well as a portion of the anterior septal wall. Mild left ventricular hypertrophy. Left ventricular ejection fraction is estimated at 50 %. Right Ventricle Mildly increased right ventricular size. Right Atrium Moderately increased right atrial size. Left Atrium The left atrium is mildly enlarged. Mitral Valve Morphologically normal mitral valve. Mild mitral valve regurgitation. Aortic Valve Morphologically normal and tricuspid aortic valve with minimal sclerosis but no stenosis. There is no aortic regurgitation. Tricuspid Valve Morphologically normal tricuspid valve. Mild tricuspid valve regurgitation. Tricuspid regurgitation velocities suggest a PAP of 45 mmHg. Pulmonic Valve Morphologically normal pulmonic valve without significant stenosis. There is no pulmonic regurgitation. Pericardium Normal pericardium without effusion. Aorta Normal ascending aorta dimension. Marques Kaye MD (Electronically Signed) Final Date: 08 May 2017 20:38
[2017-05-08] MEDS: ATORVASTATIN 20 MG TABLET PO SCH (21:39)
[2017-05-09 05:33] LABS: Basophils % 0.5 % (0.0-0.8); Eosinophils # 0.1 10*3/uL (0.0-0.87); Eosinophils % 1.9 % (0.00-10.9); Hematocrit 38.3 VOL% (42.0-52.0); Hemoglobin 13.4 GM/DL (14.0-18.0); Immature Granulocytes % 0.5 %; Immature Granulocytes Absolute 0.04 #; Lymphocytes # 1.1 10*3/uL (1.4-4.0); Lymphocytes % 14.4 % (21.2-54.2); Mean Corpuscular Hemoglobin 30 PG (27-34); Mean Corpuscular Volume 86.5 FL (87-102); Mean Platelet Volume 9.7 FL (9.6-12.0); Monocytes # 0.7 10*3/uL (0.11-0.8); Monocytes % 9.5 % (1.7-12.7); Neutrophils # 5.4 10*3/uL (1.4-7.4); Neutrophils % 73.2 % (38.7-73.9); Platelet Count 258 T/CUMM (130-400); Red Blood Count 4.43 MC/CUMM (3.8-5.5); Red Cell Distribution Width 12.7 % (9.3-17.3); White Blood Count 7.3 T/CUMM (4-12)
[2017-05-09 05:59] LABS: Blood Urea Nitrogen 13 MG/DL (7-18); Calcium 9.1 MG/DL (8.5-10.1); Glucose 113 MG/DL (74-106); Osmolality,Calculated 275.7 MOS/KG (273-304); Sodium 138 MMOL/L (136-145)
[2017-05-09 06:11] LABS: Calcium 9.1 MG/DL (8.5-10.1); Magnesium 2.1 MG/DL (1.8-2.4); Osmolality,Calculated 275.7 MOS/KG (273-304); Risk Ratio 4.47; VLDL CHOLESTEROL 28.4 MG/DL
--- NOTE | 2017-05-09 07:42 | EKG Report ---
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
[2017-05-09] MEDS ORDERED: PNEUMOCOCCAL VACCINE (13 VALENT) 0.5 ML SYRINGE IM ONE (09:00)
[2017-05-09] MEDS: ASPIRIN 325 MG TABLET PO SCH (09:10)
[2017-05-09] MEDS: METOPROLOL TARTRATE 50 MG TABLET PO SCH ×2 (09:11→20:59)
[2017-05-09] MEDS: PANTOPRAZOLE 40 MG TABLET PO SCH (09:11)
[2017-05-09] MEDS: PRASUGREL 10 MG TABLET PO SCH (09:11)
--- NOTE | 2017-05-09 09:20 | Cardiology Progress Note ---
<Odilia Garcia E - Last Filed: 05/09/17 09:20> Assessment and Plan - Time spent with patient Time spent with patient: Greater than 30 minutes (1) Chest pain Status: Resolved Assessment and plan: SEE PLAN OF CARE LISTED BELOW Current Visit: Yes (2) CAD (coronary artery disease) Status: Chronic Assessment and plan: SEE PLAN OF CARE LISTED BELOW Current Visit: Yes (3) Hx of CABG Status: Chronic Assessment and plan: SEE PLAN OF CARE LISTED BELOW Current Visit: Yes (4) Hypertension Status: Chronic Assessment and plan: SEE PLAN OF CARE LISTED BELOW Current Visit: Yes (5) Dyslipidemia Status: Chronic Assessment and plan: SEE PLAN OF CARE LISTED BELOW Current Visit: Yes (6) Right carotid bruit Status: Chronic Assessment and plan: SEE PLAN OF CARE LISTED BELOW Current Visit: Yes (7) Elevated troponin Status: Acute Assessment and plan: SEE PLAN OF CARE LISTED BELOW Current Visit: Yes (8) NSTEMI (non-ST elevated myocardial infarction) Status: Acute Assessment and plan: SEE PLAN OF CARE LISTED BELOW Current Visit: Yes Cardiology - PN: Subj Interval history: P[employer] HE[employer]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 DAY Patient is being seen in the ICU. SUMMARY: Mr. Reynolds, 62WM, History of known CAD S/P CABG June 02, 1999 with sequential SVG to intermediate branch and diagonal, REEDER to LAD, SVG to RCA. S/P inferior infarction October 08, 2011 with proximal RCA vein graft stenting. S/P mid circumflex stent November 22, 2011. History of hypertension , dyslipidemia, diabetes, and obesity. Patient was most recently seen in cardiology clinic April 30, 2017 and scheduled for stress testing this week and carotid ultrasound for right carotid bruit. The evening prior to admission, began to experience a substernal chest pressure radiating mid chest outward bilaterally. Patient was seen and evaluated in [facility] ED. He was transferred to our facility and treated for NSTEMI. May 08, 2017 patient underwent LHC performed by Dr. Kaye with the following noted: Impression: 1. Left ventricle; partial mild to consider ischemic heart disease. Ejection fraction 40-45%. 2. LVEDP is normal at 60 mmHg. 3. No significant gradient across the aortic valve looking at tracings. 4. No significant mitral valve regurgitation. 5. RCA is totally occluded proximally with a distal vessel being patent is seen by way of SVG. 6. SVG to RCA has a 99% proximal stenosis and also stenosis 60%. There is CANDIE II flow present. 7. Successful stent placement as noted above with a 9% lesion dilated 0% residual stenosis and 6% to 0% residual stenosis and CANDIE-3 flow. There is some residual luminal stenosis secondary to chronic disease and old stents. 8. Left main coronary is patent with some calcification. 9. LAD is totally occluded proximally/ostial with the mid and distal vessel seen by way of REEDER graft and is patent with good runoff. 10. REEDER to the LAD is widely patent. 11. Circumflex artery has proximal 50% less stenosis with the obtuse marginal stent widely patent. 12. SVG to ramus intermedius and diagonal branch is totally occluded and is an old finding. 13. The right comfort is widely patent successful Angio-Seal hemostasis. Tolerated the procedure well and without complication was returned to the ICU in stable condition. MAY 09, 2017: Overnight, patient has done well without chest pain, heaviness or tightness. He continues to ooze from his right groin despite repeatedly replacing pressure dressing. This morning, pressure held x 5 minutes, replaced and will re-evaluate in a bit. Troponin pending. He would like to be discharged home today and once bleeding halts, he may be eligible for discharge this afternoon. Of note, the left cheek rash is not an allergic reaction. Reports that when he shaves he gets this particular rash. Carotid ultrasound reveals no significant stenosis. Echocardiogram reveals EF 50%, mild LVH. PAP 45 mmHg. I will further discuss with Dr. Kaye and await additional recommendations. ASSESSMENT/PLAN: 1. NSTEMI - now revascularized. Hopeful for discharge this afternoon. 2. KNOWN CAD - see listed above. 3. HYPERTENSION - adequately controlled on beta norman. Holding MARIUSZ inhibitor at this point as his blood pressure will not allow for introduction. 4. DYSLIPIDEMIA - LDL 110. Advancing atorvastatin 20 mg each evening to 80 mg each evening. 5. CAROTID BRUIT, RIGHT - benign per carotid ultrasound. Exam (Progress Note) - Constitutional Vitals: Period Temp Pulse Resp BP Sys/Casas Pulse Ox Last 24 Hr 96.9 F-98.5 F 54-63 11-23 105-142/62-84 92-96 Exam: General: [Appears well with no apparent distress.] [Pleasant and cooperative. ] [Appears comfortable.] HEENT: [PERRL, normocephalic, atraumatic. Mucous membranes moist. No jaundice noted. Conjunctiva moist and clear, sclerae anicteric] Neck: No JVD/HJR, no thyromegaly or lymphadenopathy noted. No carotid bruit appreciated Cardiac: [Regular rate and rhythm.] [No murmur rub or gallop.] PMI is nondisplaced. Lungs: [Clear to auscultation without accessory muscle use to assist the respiratory pattern.] Oxygen in use via nasal cannula Abdomen: Soft, bowel sounds normoactive. Nontender and nondistended. No abdominal bruit or thrill noted. No masses noted. Musculoskeletal: No fluid collection. Decreased range of motion is noted. Extremities: Right groin soft, free of hematoma or bruit. Continues to use and new pressure dressing applied after holding pressure for 5 minutes. No edema noted.] Upper extremity pulses 2+. Lower extremity pulses 2+. Capillary refill less than 3 seconds. Skin: No unusual lesions noted. Left cheek reveals a red raised rash. Neuro: Awake, alert and oriented 3. Moves all extremities well without hemiparesis or paralysis. No essential tremor is appreciated. Result/EKG - Labs CBC & BMP: 05/09/17 04:35 05/09/17 04:36 Lab Results: I have reviewed the past 24 hour labs Labs: Laboratory Results - last 24 hr 05/08/17 05/08/17 05/08/17 11:55 16:54 17:50 WBC RBC Hgb Hct MCV MCH MCHC RDW Plt Count MPV Neut % (Auto) Lymph % (Auto) [place] % (Auto) Eos % (Auto) Baso % (Auto) Neut # (Auto) Lymph # (Auto) [place] # (Auto) Eos # (Auto) Baso # (Auto) Immature Gran % Nucleated RBC % Immature Gran # Nucleated RBCs # Immature Plt Fraction Sodium Potassium Chloride Carbon Dioxide Anion Gap BUN Creatinine GFR Calculation BUN/Creatinine Ratio Glucose POC Glucose 104 92 Calculated Osmolality Calcium Magnesium Total Creatine Kinase CK-MB (CK-2) Troponin I Triglycerides Cholesterol LDL Cholesterol VLDL Cholesterol HDL Cholesterol Heart Disease Risk Ratio Urine Color Straw Urine Appearance Clear Urine pH 6.0 Ur Specific [place] > 1.060 H Urine Protein Negative Urine Glucose (UA) Negative Urine Ketones 5 Urine Blood Negative Urine Nitrate Negative Urine Bilirubin Negative Urine Urobilinogen < 2.0 H Urine Leukocytes Negative Urine RBC 1 Urine WBC <1 Urine Mucus Occasional Ur Culture Indicated? Not indicated 05/08/17 05/09/17 05/09/17 21:13 04:35 04:36 WBC 7.3 RBC 4.43 Hgb 13.4 L Hct 38.3 L MCV 86.5 L MCH 30 MCHC 35.0 RDW 12.7 Plt Count 258 MPV 9.7 Neut % (Auto) 73.2 Lymph % (Auto) 14.4 L [place] % (Auto) 9.5 Eos % (Auto) 1.9 Baso % (Auto) 0.5 Neut # (Auto) 5.4 Lymph # (Auto) 1.1 L [place] # (Auto) 0.7 Eos # (Auto) 0.1 Baso # (Auto) 0.0 Immature Gran % 0.5 Nucleated RBC % 0.0 Immature Gran # 0.04 Nucleated RBCs # 0.00 Immature Plt Fraction 0.0 Sodium 138 Potassium 4.0 Chloride 105 Carbon Dioxide 28 Anion Gap 9.0 BUN 13 Creatinine 0.90 GFR Calculation 111 BUN/Creatinine Ratio 14.00 Glucose 113 H POC Glucose 147 H Calculated Osmolality 275.7 Calcium 9.1 Magnesium Total Creatine Kinase 105 D CK-MB (CK-2) 4.9 H Troponin I 1.320 H D Triglycerides Cholesterol LDL Cholesterol VLDL Cholesterol HDL Cholesterol Heart Disease Risk Ratio Urine Color Urine Appearance Urine pH Ur Specific [place] Urine Protein Urine Glucose (UA) Urine Ketones Urine Blood Urine Nitrate Urine Bilirubin Urine Urobilinogen Urine Leukocytes Urine RBC Urine WBC Urine Mucus Ur Culture Indicated? 05/09/17 05/09/17 04:36 07:58 WBC RBC Hgb Hct MCV MCH MCHC RDW Plt Count MPV Neut % (Auto) Lymph % (Auto) [place] % (Auto) Eos % (Auto) Baso % (Auto) Neut # (Auto) Lymph # (Auto) [place] # (Auto) Eos # (Auto) Baso # (Auto) Immature Gran % Nucleated RBC % Immature Gran # Nucleated RBCs # Immature Plt Fraction Sodium 138 Potassium 4.0 Chloride 105 Carbon Dioxide 25 Anion Gap 12.0 BUN 12 Creatinine 0.90 GFR Calculation 111 BUN/Creatinine Ratio 13.00 Glucose 112 H POC Glucose 121 H Calculated Osmolality 275.7 Calcium 9.1 Magnesium 2.1 Total Creatine Kinase CK-MB (CK-2) Troponin I Triglycerides 142 Cholesterol 170 LDL Cholesterol 110.0 VLDL Cholesterol 28.4 HDL Cholesterol 38 L Heart Disease Risk Ratio 4.47 Urine Color Urine Appearance Urine pH Ur Specific [place] Urine Protein Urine Glucose (UA) Urine Ketones Urine Blood Urine Nitrate Urine Bilirubin Urine Urobilinogen Urine Leukocytes Urine RBC Urine WBC Urine Mucus Ur Culture Indicated? - Diagnostic Findings Procedure: Chest x-ray: report reviewed by me - EKG EKG results: interpreted by me EKG shows: sinus rhythm Quality Measures - VTE Contraindication to Pharmacological VTE Prophylaxis: High Risk of Bleeding Specialty Discharge - Follow Up or Referrals <VargasMarques Mckenzie - Last Filed: 05/09/17 16:22> Cardiology - PN: Subj Interval history: Patient personally interviewed and examined. Chart reviewed. Discussed this case with Odilia Garcia NP. The patient generally has done well without any further chest pain shortness of breath. The biggest issues being oozing from the right groin. This may very well just be some subcutaneous vessel oozing with him on his antiplatelet drugs and therapy. At this time though his cardiac status remains stable and otherwise progressing well. I do not feel comfortable with him going home with his to have a little bit of ooze there his leg. A FemoStop has been placed and will see if this will help stop the bleeding and get hemostasis. He has no evidence of deep bleeding. This all appears to be very superficial. This postprocedure lab work is stable. Peak troponin is 1.3. If everything goes well we may be to discharge tomorrow. Exam (Progress Note) - Constitutional Vitals: Period Temp Pulse Resp BP Sys/Casas Pulse Ox Last 24 Hr 96.9 F-98.5 F 54-63 10-25 110-142/66-82 92-95 Result/EKG - Labs CBC & BMP: 05/09/17 04:35 05/09/17 04:36 Labs: Laboratory Results - last 24 hr 05/08/17 05/08/17 05/08/17 16:54 17:50 21:13 WBC RBC Hgb Hct MCV MCH MCHC RDW Plt Count MPV Neut % (Auto) Lymph % (Auto) [place] % (Auto) Eos % (Auto) Baso % (Auto) Neut # (Auto) Lymph # (Auto) [place] # (Auto) Eos # (Auto) Baso # (Auto) Immature Gran % Nucleated RBC % Immature Gran # Nucleated RBCs # Immature Plt Fraction Sodium Potassium Chloride Carbon Dioxide Anion Gap BUN Creatinine GFR Calculation BUN/Creatinine Ratio Glucose POC Glucose 92 147 H Calculated Osmolality Calcium Magnesium Total Creatine Kinase CK-MB (CK-2) Troponin I Triglycerides Cholesterol LDL Cholesterol VLDL Cholesterol HDL Cholesterol Heart Disease Risk Ratio Urine Color Straw Urine Appearance Clear Urine pH 6.0 Ur Specific [place] > 1.060 H Urine Protein Negative Urine Glucose (UA) Negative Urine Ketones 5 Urine Blood Negative Urine Nitrate Negative Urine Bilirubin Negative Urine Urobilinogen < 2.0 H Urine Leukocytes Negative Urine RBC 1 Urine WBC <1 Urine Mucus Occasional Ur Culture Indicated? Not indicated 05/09/17 05/09/17 05/09/17 04:35 04:36 04:36 WBC 7.3 RBC 4.43 Hgb 13.4 L Hct 38.3 L MCV 86.5 L MCH 30 MCHC 35.0 RDW 12.7 Plt Count 258 MPV 9.7 Neut % (Auto) 73.2 Lymph % (Auto) 14.4 L [place] % (Auto) 9.5 Eos % (Auto) 1.9 Baso % (Auto) 0.5 Neut # (Auto) 5.4 Lymph # (Auto) 1.1 L [place] # (Auto) 0.7 Eos # (Auto) 0.1 Baso # (Auto) 0.0 Immature Gran % 0.5 Nucleated RBC % 0.0 Immature Gran # 0.04 Nucleated RBCs # 0.00 Immature Plt Fraction 0.0 Sodium 138 138 Potassium 4.0 4.0 Chloride 105 105 Carbon Dioxide 28 25 Anion Gap 9.0 12.0 BUN 13 12 Creatinine 0.90 0.90 GFR Calculation 111 111 BUN/Creatinine Ratio 14.00 13.00 Glucose 113 H 112 H POC Glucose Calculated Osmolality 275.7 275.7 Calcium 9.1 9.1 Magnesium 2.1 Total Creatine Kinase 105 D CK-MB (CK-2) 4.9 H Troponin I 1.320 H D Triglycerides 142 Cholesterol 170 LDL Cholesterol 110.0 VLDL Cholesterol 28.4 HDL Cholesterol 38 L Heart Disease Risk Ratio 4.47 Urine Color Urine Appearance Urine pH Ur Specific [place] Urine Protein Urine Glucose (UA) Urine Ketones Urine Blood Urine Nitrate Urine Bilirubin Urine Urobilinogen Urine Leukocytes Urine RBC Urine WBC Urine Mucus Ur Culture Indicated? 05/09/17 05/09/17 05/09/17 07:58 09:22 11:14 WBC RBC Hgb Hct MCV MCH MCHC RDW Plt Count MPV Neut % (Auto) Lymph % (Auto) [place] % (Auto) Eos % (Auto) Baso % (Auto) Neut # (Auto) Lymph # (Auto) [place] # (Auto) Eos # (Auto) Baso # (Auto) Immature Gran % Nucleated RBC % Immature Gran # Nucleated RBCs # Immature Plt Fraction Sodium Potassium Chloride Carbon Dioxide Anion Gap BUN Creatinine GFR Calculation BUN/Creatinine Ratio Glucose POC Glucose 121 H 158 H Calculated Osmolality Calcium Magnesium Total Creatine Kinase CK-MB (CK-2) Troponin I 1.070 H Triglycerides Cholesterol LDL Cholesterol VLDL Cholesterol HDL Cholesterol Heart Disease Risk Ratio Urine Color Urine Appearance Urine pH Ur Specific [place] Urine Protein Urine Glucose (UA) Urine Ketones Urine Blood Urine Nitrate Urine Bilirubin Urine Urobilinogen Urine Leukocytes Urine RBC Urine WBC Urine Mucus Ur Culture Indicated? 05/09/17 11:58 WBC RBC Hgb Hct MCV MCH MCHC RDW Plt Count MPV Neut % (Auto) Lymph % (Auto) [place] % (Auto) Eos % (Auto) Baso % (Auto) Neut # (Auto) Lymph # (Auto) [place] # (Auto) Eos # (Auto) Baso # (Auto) Immature Gran % Nucleated RBC % Immature Gran # Nucleated RBCs # Immature Plt Fraction Sodium Potassium Chloride Carbon Dioxide Anion Gap BUN Creatinine GFR Calculation BUN/Creatinine Ratio Glucose POC Glucose 123 H Calculated Osmolality Calcium Magnesium Total Creatine Kinase CK-MB (CK-2) Troponin I Triglycerides Cholesterol LDL Cholesterol VLDL Cholesterol HDL Cholesterol Heart Disease Risk Ratio Urine Color Urine Appearance Urine pH Ur Specific [place] Urine Protein Urine Glucose (UA) Urine Ketones Urine Blood Urine Nitrate Urine Bilirubin Urine Urobilinogen Urine Leukocytes Urine RBC Urine WBC Urine Mucus Ur Culture Indicated?
[2017-05-09] MEDS: SODIUM CHLORIDE 0.45% 1,000 ML IV SCH (13:10)
[2017-05-09] MEDS: INSULIN REGULAR 100 UNIT/ML SUBCUT SCH ×3 (13:10→22:00)
[2017-05-09] MEDS: HYDROmorphone 2 MG/1 ML VIAL IV PRN (16:15)
[2017-05-09] MEDS ORDERED: ATORVASTATIN 80 MG TABLET PO SCH (21:00)
[2017-05-10] MEDS: HYDROmorphone 2 MG/1 ML VIAL IV PRN (00:24)
[2017-05-10] MEDS: SODIUM CHLORIDE 0.45% 1,000 ML IV SCH (00:28)
[2017-05-10 04:08] LABS: Basophils % 0.4 % (0.0-0.8); Eosinophils # 0.1 10*3/uL (0.0-0.87); Eosinophils % 1.8 % (0.00-10.9); Hemoglobin 13.1 GM/DL (14.0-18.0); Immature Granulocytes % 0.6 %; Immature Granulocytes Absolute 0.04 #; Lymphocytes # 1.1 10*3/uL (1.4-4.0); Lymphocytes % 15.9 % (21.2-54.2); Mean Corpuscular HGB Conc 34.5 GM/DL (32-36); Mean Corpuscular Hemoglobin 30 PG (27-34); Mean Corpuscular Volume 86.4 FL (87-102); Mean Platelet Volume 9.5 FL (9.6-12.0); Monocytes # 0.7 10*3/uL (0.11-0.8); Monocytes % 9.6 % (1.7-12.7); Neutrophils # 5.1 10*3/uL (1.4-7.4); Neutrophils % 71.7 % (38.7-73.9); Platelet Count 265 T/CUMM (130-400); Red Cell Distribution Width 12.7 % (9.3-17.3); White Blood Count 7.1 T/CUMM (4-12)
[2017-05-10 04:33] LABS: Calcium 8.8 MG/DL (8.5-10.1); Magnesium 2.3 MG/DL (1.8-2.4); Osmolality,Calculated 277.5 MOS/KG (273-304); Potassium 4.2 MMOL/L (3.5-5.1)
--- NOTE | 2017-05-10 07:06 | Event Note ---
Patient doing well this morning. He has bleeding from his right groin stop last night he has been up and out of the bed without difficulty issues please had no chest pain. His lab work is stable excluding his H&H. His rhythm is been stable. He has had no chest pain shortness of breath. Our plans will be to discharge him today in follow-up with Dr. barlow who I think is his regular artificial glass eye maker.
[2017-05-10] MEDS: INSULIN REGULAR 100 UNIT/ML SUBCUT SCH (08:32)
[2017-05-10] MEDS: PANTOPRAZOLE 40 MG TABLET PO SCH (08:35)
[2017-05-10] MEDS: ASPIRIN 325 MG TABLET PO SCH (08:35)
[2017-05-10] MEDS: METOPROLOL TARTRATE 50 MG TABLET PO SCH (08:35)
[2017-05-10] MEDS: PRASUGREL 10 MG TABLET PO SCH (08:35)
--- NOTE | 2017-05-10 08:58 | Discharge Summary ---
Hospital Course - Hospital Course Hospital Course: MANGLE CATCHER: DR. MIKE Patient is being seen in the ICU. SUMMARY: Mr. Reynolds, 62WM, History of known CAD S/P CABG June 02, 1999 with sequential SVG to intermediate branch and diagonal, REEDER to LAD, SVG to RCA. S/P inferior infarction October 08, 2011 with proximal RCA vein graft stenting. S/P mid circumflex stent November 22, 2011. History of hypertension , dyslipidemia, diabetes, and obesity. Patient was most recently seen in cardiology clinic April 30, 2017 and scheduled for stress testing this week and carotid ultrasound for right carotid bruit. The evening prior to admission, began to experience a substernal chest pressure radiating mid chest outward bilaterally. Patient was seen and evaluated in [facility] ED. He was transferred to our facility and treated for NSTEMI. May 08, 2017 patient underwent LHC performed by Dr. Kaye with the following noted: Impression: 1. Left ventricle; partial mild to consider ischemic heart disease. Ejection fraction 40-45%. 2. LVEDP is normal at 60 mmHg. 3. No significant gradient across the aortic valve looking at tracings. 4. No significant mitral valve regurgitation. 5. RCA is totally occluded proximally with a distal vessel being patent is seen by way of SVG. 6. SVG to RCA has a 99% proximal stenosis and also stenosis 60%. There is CANDIE II flow present. 7. Successful stent placement as noted above with a 9% lesion dilated 0% residual stenosis and 6% to 0% residual stenosis and CANDIE-3 flow. There is some residual luminal stenosis secondary to chronic disease and old stents. 8. Left main coronary is patent with some calcification. 9. LAD is totally occluded proximally/ostial with the mid and distal vessel seen by way of REEDER graft and is patent with good runoff. 10. REEDER to the LAD is widely patent. 11. Circumflex artery has proximal 50% less stenosis with the obtuse marginal stent widely patent. 12. SVG to ramus intermedius and diagonal branch is totally occluded and is an old finding. 13. The right comfort is widely patent successful Angio-Seal hemostasis. Tolerated the procedure well and without complication was returned to the ICU in stable condition. MAY 09, 2017: Overnight, patient has done well without chest pain, heaviness or tightness. He continues to ooze from his right groin despite repeatedly replacing pressure dressing. This morning, pressure held x 5 minutes, replaced and will re-evaluate in a bit. Troponin pending. He would like to be discharged home today and once bleeding halts, he may be eligible for discharge this afternoon. Of note, the left cheek rash is not an allergic reaction. Reports that when he shaves he gets this particular rash. Carotid ultrasound reveals no significant stenosis. Echocardiogram reveals EF 50%, mild LVH. PAP 45 mmHg. I will further discuss with Dr. Kaye and await additional recommendations. MAY 10, 2017: Patient had slow but persistent oozing from the right groin and therefore patient was kept an additional 24 hours. He actually required for him to stop to halt the bleeding. This morning, labs are stable. He has been ambulating without difficulty. No more bleeding or oozing from the right groin site. No evidence of hematoma or bruit noted. Vital signs are stable as are labs. He is anxious for release home. Dr. Kaye has seen patient and agrees he is stable for discharge. Having felt is met maximal medical therapy, he is being discharged home in stable condition. He will be given a 2-3 week follow-up with Dr. Mike. The following will be obtained at [facility]: BMP, magnesium, CBC, EKG. Discharge medications include: Aspirin 325 mg 1 p.o. daily Effient 10 mg 1 p.o. daily Atorvastatin 80 mg orally each evening (new dose) Lisinopril 5 mg orally daily (new dose) Metoprolol tartrate 25 mg orally twice daily (new med) Metformin HCL 500 mg orally twice daily Gemfibrozil 600 mg orally twice daily Patient personally interviewed and examined this morning and chart reviewed. Discussed this case with Odilia Garcia NP. I agree with the assessment and evaluation. Some and in addition the patient is doing well without groin bleeding or swelling. Lab work is stable. Discussed our findings again with him and plans. He will keep follow-up with Dr. Mike. - Time spent with patient Time with patient DS: Greater than 30 minutes Diagnosis - Discharge Diagnosis (1) Chest pain Status: Resolved (2) CAD (coronary artery disease) Status: Chronic (3) Hx of CABG Status: Chronic (4) Hypertension Status: Chronic (5) Dyslipidemia Status: Chronic (6) Right carotid bruit Status: Chronic (7) Elevated troponin Status: Resolved (8) NSTEMI (non-ST elevated myocardial infarction) Status: Acute Specialty Discharge - Follow Up or Referrals Follow up with: William Mike MD [Physician] - 05/22/17 7:40 am (Appointment Monday May 22, 2017 at 07:[address] Rashid PADILLA Mg, CBC, EKG) Discharge Plan - Discharge Data Disposition: Disch To Home/Self Care Condition at Discharge: Stable Discharge Diet: heart healthy Activity: other (Post cath expectations) Hygiene: other (Post cath expectations) Weight Bearing at Discharge: other (Post cath expectations) Driving: other (Post cath expectations) Contact your physician if you experience:: fever over 101, Difficulty voiding, Redness or swelling, Nausea/Vomiting, Shortness of breath, Bleeding, pain uncontrolled by pain medications - Discharge Medications New Atorvastatin [Lipitor] 80 mg PO BEDTIME #30 tablet Lisinopril [Prinivil] 5 mg PO DAILY #30 tablet Metoprolol Tartrate Tab [Lopressor Tab] 25 mg PO BID #60 tablet Aspirin Tab 325 mg PO DAILY tablet Continue Metformin HCl 500 mg PO BID Gemfibrozil 600 mg PO BID Prasugrel [Effient] 10 tablet PO DAILY Discontinued Lisinopril 10 mg PO DAILY Atorvastatin [Lipitor] 40 mg PO BEDTIME - Follow Up or Referral Follow Up: William Mike MD [Physician] - 05/22/17 7:40 am (Appointment Monday May 22, 2017 at 07:[address] Rashid PADILLA Mg, CBC, EKG) - Forms/Instructions Instructions: Myocardial Infarction (GEN), Left Heart Catheterization (DC), Heart Healthy Diet (GEN), Coronary Intravascular Stent Placement (DC), Acute Coronary Syndrome Additional Discharge Instructions: Please instruct patient to remove dressing from right groin Saturday morning. There is no pharmacy listed in [place] in order to electronically transmit new discharge meds. Therefore, please call in the following: ECASA 325 mg 1 p.o. daily. Dispense 30, 1 refill. Atorvastatin 80 mg orally each evening. Dispense 30, 1 refill. Lisinopril 5 mg 1 p.o. daily. Dispense 30, 1 refill. Metoprolol tartrate 25 mg 1 p.o. twice daily. Dispense 60, 1 refill Exam - Constitutional Vitals: Period Temp Pulse Resp BP Sys/Casas Pulse Ox Last 24 Hr 96.8 F-98.9 F 51-63 12-27 98-160/51-81 93-98 Exam: General: [Appears well with no apparent distress.] [Pleasant and cooperative. ] [Appears comfortable.] HEENT: [PERRL, normocephalic, atraumatic. Mucous membranes moist. No jaundice noted. Conjunctiva moist and clear, sclerae anicteric] Neck: No JVD/HJR, no thyromegaly or lymphadenopathy noted. No carotid bruit appreciated Cardiac: [Regular rate and rhythm.] [No murmur rub or gallop.] PMI is nondisplaced. Lungs: [Clear to auscultation without accessory muscle use to assist the respiratory pattern.] Oxygen in use via nasal cannula Abdomen: Soft, bowel sounds normoactive. Nontender and nondistended. No abdominal bruit or thrill noted. No masses noted. Musculoskeletal: No fluid collection. Decreased range of motion is noted. Extremities: Right groin soft, free of hematoma or bruit. No bleeding. No edema noted.] Upper extremity pulses 2+. Lower extremity pulses 2+. Capillary refill less than 3 seconds. Skin: No unusual lesions noted. Left cheek reveals a red raised rash. Neuro: Awake, alert and oriented 3. Moves all extremities well without hemiparesis or paralysis. No essential tremor is appreciated. Discharge Results Labs on day of discharge: Labs from last 24 hours 05/10/17 05/10/17 05/10/17 07:32 03:35 03:35 WBC 7.1 RBC 4.40 Hgb 13.1 L Hct 38.0 L MCV 86.4 L MCH 30 MCHC 34.5 RDW 12.7 Plt Count 265 MPV 9.5 L Neut % (Auto) 71.7 Lymph % (Auto) 15.9 L [place]idan % (Auto) 9.6 Eos % (Auto) 1.8 Baso % (Auto) 0.4 Neut # (Auto) 5.1 Lymph # (Auto) 1.1 L [place] # (Auto) 0.7 Eos # (Auto) 0.1 Baso # (Auto) 0.0 Immature Gran % 0.6 Nucleated RBC % 0.0 Immature Gran # 0.04 Nucleated RBCs # 0.00 Immature Plt Fraction 0.0 Sodium 139 Potassium 4.2 Chloride 106 Carbon Dioxide 27 Anion Gap 10.2 BUN 12 Creatinine 0.90 GFR Calculation 111 BUN/Creatinine Ratio 13.00 Glucose 111 H POC Glucose 125 H Calculated Osmolality 277.5 Calcium 8.8 Magnesium 2.3 05/09/17 05/09/17 21:49 17:40 WBC RBC Hgb Hct MCV MCH MCHC RDW Plt Count MPV Neut % (Auto) Lymph % (Auto) [place] % (Auto) Eos % (Auto) Baso % (Auto) Neut # (Auto) Lymph # (Auto) [place]idan # (Auto) Eos # (Auto) Baso # (Auto) Immature Gran % Nucleated RBC % Immature Gran # Nucleated RBCs # Immature Plt Fraction Sodium Potassium Chloride Carbon Dioxide Anion Gap BUN Creatinine GFR Calculation BUN/Creatinine Ratio Glucose POC Glucose 111 H 132 H Calculated Osmolality Calcium Magnesium DS: Provider Date of admission: 05/07/17 19:57 Primary care physician: . No PCP Attending physician on admission: William Mike MD Consults: 05/07/17 21:59 Consult to Pastoral Services [CONS] Routine Comment: Pastoral Screen: Request Research Advisor Visit Pastoral Screen Source of Request: Patient 05/08/17 14:39 Consult to Cardiac Rehabilitation [CONS] Routine Reason for Cardiac Rehabilitation: Risk Factor Modification Discharging clinician: Odilia Garcia NP Expected date of discharge: 05/10/17
[2017-05-10] MEDS ORDERED: LISINOPRIL 5 MG TABLET PO SCH (09:00)
[2017-05-10] MEDS ORDERED: METOPROLOL TARTRATE 25 MG TABLET PO SCH (09:00)
[2017-05-10 10:02] VITALS: BP 115/70
== END 2017-05-10 11:22 | disposition home or self-care (01) | DRG 247 ==
LOC: EDUNIT# → EDBD → N.ED 18:47 → N.EDINP 19:57 → N.ICU 21:10
PROVIDERS: ADMIT Internal Medicine Cardiovascular Disease; ATTEND Internal Medicine Cardiovascular Disease

== ENCOUNTER 2018-07-23 10:28 | Inpatient (IN) ==
[2018-07-23] MEDS ORDERED: DIAZEPAM 5 MG TABLET PO ONE (11:39)
[2018-07-23] MEDS ORDERED: ASPIRIN 325 MG TABLET PO ONE (11:39)
[2018-07-23] MEDS ORDERED: POTASSIUM CHLORIDE RIDER 10 MEQ in PREMIX 1 EACH IV PRN (11:39)
[2018-07-23] MEDS ORDERED: diphenhydrAMINE CAP 25 MG CAPSULE PO ONE (11:39)
[2018-07-23] MEDS ORDERED: MAGNESIUM SULF RIDER 2 GM in PREMIX 1 EACH IV PRN (11:39)
[2018-07-23 11:48] LABS: Basophils # 0.1 10*3/uL (0.0-0.2); Basophils % 0.9 % (0.0-0.8); Eosinophils # 0.1 10*3/uL (0.0-0.87); Eosinophils % 2.6 % (0.00-10.9); Hematocrit 40.4 VOL% (42.0-52.0); Hemoglobin 13.4 GM/DL (14.0-18.0); Immature Granulocytes % 0.6 %; Immature Granulocytes Absolute 0.03 #; Lymphocytes # 1.2 10*3/uL (1.4-4.0); Lymphocytes % 22.2 % (21.2-54.2); Mean Corpuscular HGB Conc 33.2 GM/DL (32-36); Mean Corpuscular Hemoglobin 30 PG (27-34); Mean Corpuscular Volume 89.6 FL (87-102); Mean Platelet Volume 9.5 FL (9.6-12.0); Monocytes # 0.6 10*3/uL (0.11-0.8); Monocytes % 10.6 % (1.7-12.7); Neutrophils # 3.4 10*3/uL (1.4-7.4); Neutrophils % 63.1 % (38.7-73.9); Platelet Count 286 T/CUMM (130-400); Red Blood Count 4.51 MC/CUMM (3.8-5.5); Red Cell Distribution Width 13.1 % (9.3-17.3); White Blood Count 5.4 T/CUMM (4-12)
[2018-07-23 11:56] LABS: PT Patient Result 10.3 SECS
[2018-07-23] MEDS: SODIUM CHLORIDE 0.9% 1,000 ML IV SCH ×2 (11:56→20:34)
[2018-07-23 12:10] LABS: Calcium 9.2 MG/DL (8.5-10.1); Osmolality,Calculated 279.4 MOS/KG (273-304); Potassium 4.2 MMOL/L (3.5-5.1)
[2018-07-23] MEDS ORDERED: HEPARIN/NACL 0.9% 2 UNITS/ML 1,000 ML IV ONE (12:49)
[2018-07-23] MEDS ORDERED: HYDROmorphone 2 MG/1 ML VIAL ONE (13:24)
[2018-07-23] MEDS ORDERED: BIVALIRUDIN 250 MG VIAL IV ONE (13:24)
[2018-07-23] MEDS ORDERED: MIDAZOLAM 2 MG/2 ML VIAL ONE (13:24)
[2018-07-23] MEDS ORDERED: NITROGLYCERIN DRIP 50 MG/250 ML BOTTLE IV ONE (14:11)
[2018-07-23] MEDS ORDERED: PRASUGREL 10 MG TABLET ONE (14:13)
[2018-07-23] MEDS ORDERED: ONDANSETRON 4 MG/2 ML VIAL IV PRN (14:26)
[2018-07-23] MEDS ORDERED: NITROGLYCERIN SL 0.4 MG TABLET SL PRN (14:28)
[2018-07-23] MEDS ORDERED: NITROGLYCERIN 2% OINT 1 INCH/GM PACK TOP ONE ×2 (14:39→14:40)
[2018-07-23] MEDS ORDERED: MAGNESIUM HYDROXIDE SUSP 30 ML UDCUP PO PRN (15:41)
[2018-07-23] MEDS ORDERED: diphenhydrAMINE CAP 25 MG CAPSULE PO PRN (15:41)
[2018-07-23] MEDS ORDERED: INFLUENZA VIRUS VACCINE 0.5 ML SYRINGE IM ONE (15:55)
[2018-07-23] MEDS: GEMFIBROZIL 600 MG TABLET PO SCH (20:34)
[2018-07-23] MEDS: ATORVASTATIN 40 MG TABLET PO SCH (20:34)
[2018-07-23] MEDS: METOPROLOL TARTRATE 25 MG TABLET PO SCH (20:34)
[2018-07-23] MEDS: ZALEPLON 5 MG CAPSULE PO PRN (20:39)
[2018-07-23] MEDS ORDERED: ASPIRIN 325 MG TABLET PO SCH (21:00)
[2018-07-24 03:32] LABS: Basophils % 0.3 % (0.0-0.8); Eosinophils # 0.1 10*3/uL (0.0-0.87); Eosinophils % 1.5 % (0.00-10.9); Hematocrit 35.8 VOL% (42.0-52.0); Hemoglobin 11.6 GM/DL (14.0-18.0); Immature Granulocytes % 0.4 %; Immature Granulocytes Absolute 0.04 #; Lymphocytes % 11.7 % (21.2-54.2); Mean Corpuscular HGB Conc 32.4 GM/DL (32-36); Mean Corpuscular Hemoglobin 29 PG (27-34); Mean Corpuscular Volume 89.5 FL (87-102); Mean Platelet Volume 9.7 FL (9.6-12.0); Monocytes # 0.8 10*3/uL (0.11-0.8); Monocytes % 8.4 % (1.7-12.7); Neutrophils # 6.9 10*3/uL (1.4-7.4); Neutrophils % 77.7 % (38.7-73.9); Platelet Count 264 T/CUMM (130-400); Red Cell Distribution Width 12.9 % (9.3-17.3); White Blood Count 8.9 T/CUMM (4-12)
[2018-07-24 03:50] LABS: Calcium 8.4 MG/DL (8.5-10.1); Osmolality,Calculated 275.7 MOS/KG (273-304); Potassium 4.1 MMOL/L (3.5-5.1)
[2018-07-24] MEDS: SODIUM CHLORIDE 0.9% 1,000 ML IV SCH ×3 (03:56→23:09)
[2018-07-24 03:57] LABS: CKMB % 9.4 %
[2018-07-24 04:15] LABS: Troponin I 6.42 NG/ML (0.00-0.045)
[2018-07-24] MEDS: PRASUGREL 10 MG TABLET PO SCH (09:09)
[2018-07-24] MEDS: GEMFIBROZIL 600 MG TABLET PO SCH ×2 (09:09→21:06)
[2018-07-24] MEDS: ASPIRIN CHEW 81 MG TABLET PO SCH (09:09)
[2018-07-24] MEDS: LISINOPRIL 5 MG TABLET PO SCH (09:09)
[2018-07-24] MEDS: EZETIMIBE 10 MG TABLET PO SCH (09:09)
[2018-07-24] MEDS: METOPROLOL TARTRATE 25 MG TABLET PO SCH ×2 (09:10→21:06)
[2018-07-24 13:23] LABS: CKMB % 7.7 %
[2018-07-24 13:32] LABS: Troponin I 12.1 NG/ML (0.00-0.045)
[2018-07-24 20:13] LABS: CKMB % 5.6 %
[2018-07-24 20:14] LABS: Troponin I 10.7 NG/ML (0.00-0.045)
[2018-07-24] MEDS: ATORVASTATIN 40 MG TABLET PO SCH (21:06)
[2018-07-24] MEDS: ZALEPLON 5 MG CAPSULE PO PRN (21:06)
[2018-07-25 06:22] LABS: CKMB % 3.9 %
[2018-07-25 06:29] LABS: Troponin I 7.74 NG/ML (0.00-0.045)
[2018-07-25] MEDS: SODIUM CHLORIDE 0.9% 1,000 ML IV SCH (06:44)
[2018-07-25] MEDS: GEMFIBROZIL 600 MG TABLET PO SCH (09:08)
[2018-07-25] MEDS: ASPIRIN CHEW 81 MG TABLET PO SCH (09:08)
[2018-07-25] MEDS: EZETIMIBE 10 MG TABLET PO SCH (09:08)
[2018-07-25] MEDS: PRASUGREL 10 MG TABLET PO SCH (09:08)
[2018-07-25] MEDS: LISINOPRIL 5 MG TABLET PO SCH (09:08)
[2018-07-25] MEDS: METOPROLOL TARTRATE 25 MG TABLET PO SCH (09:08)
[2018-07-25 11:41] VITALS: BP 118/74
== END 2018-07-25 13:03 | disposition home or self-care (01) | DRG 247 ==
LOC: N.CL 10:28 → N.TELES 15:00
PROVIDERS: ADMIT Internal Medicine Cardiovascular Disease; ATTEND Internal Medicine Cardiovascular Disease